=== PATIENT | male | born 1960 | race Caucasian/White ===

== ENCOUNTER 2018-06-28 08:43 | Day surgery (SDC) | payer OTHER ==
[~2018-06-28] VITALS: Ht 175.3 cm; Wt 74.8 kg
[~2018-06-28 08:43] MED LIST: ATENOLOL25 MG PO; CEPHALEXIN500 MG OR; HYDROCHLOROT12.5 MG OR; LISINOPRIL20 MG PO; LORTAB5 PO; LOSARTAN/HCT1 TA1 PO; ZESTRIL10 MG OR
[2018-06-28 12:00] VITALS: BP 158/94
== END 2018-06-28 12:18 | disposition home or self-care (01) | DRG 392 ==
LOC: ENDO 08:43 → ORM 11:15 → ENDO 12:15 → ORM 12:30 → ENDO 15:00
PROVIDERS: ATTEND Internal Medicine Gastroenterology
PROC: 0DBF8ZX Excision of Right Large Intestine, Via Natural or Artificial Opening Endoscopic, Diagnostic (ICD-10-PCS; principal; 2018-06-28)
DX: K57.30 Diverticulosis of large intestine without perforation or abscess without bleeding (principal); K50.111 Crohn's disease of large intestine with rectal bleeding; K64.4 Residual hemorrhoidal skin tags; K64.8 Other hemorrhoids; I10 Essential (primary) hypertension; Z85.46 Personal history of malignant neoplasm of prostate